=== PATIENT | female | born 1985 | race African-American/Black ===

== ENCOUNTER 2020-12-01 19:30 | Emergency (ER) | payer OTHER ==
[~2020-12-01] VITALS: Ht 147.3 cm; Wt 50.8 kg
[2020-12-01] MEDS ORDERED: ZYRTEC10 MG PO (22:22)
[2020-12-01] MEDS ORDERED: MUCINEX DM ER1 EAC1 PO (22:22)
[2020-12-07] MEDS ORDERED: ACETAMINOPHEN650 M2 (11:46)
== END 2020-12-01 22:47 | disposition home or self-care (01) ==
LOC: ER 19:30
DX: J06.9 Acute upper respiratory infection, unspecified (principal); Z03.818 Encounter for observation for suspected exposure to other biological agents ruled out